=== PATIENT | male | born 1940 | race Caucasian/White ===

== ENCOUNTER 2018-05-12 15:21 | Inpatient (IN) | payer OTHER ==
[2018-05-12] MEDS ORDERED: NS 500 ML IV ONE (15:54)
[2018-05-12 16:13] LABS: PLATELET COUNT 189 10^3/uL (150-400)
[2018-05-12 16:23] LABS: INR 1.53 (0.83-1.16); PROTIME(PATIENT) 18.5 SEC (12.0-15.0)
--- NOTE | 2018-05-12 16:24 | EDPHY ---
H & P Time Seen by Provider: 05/12/18 15:24 HPI/ROS: CHIEF COMPLAINT: Shortness of breath and weakness. HISTORY OF PRESENT ILLNESS: Patient brought in by friend with multiple vague complaints. He states he has feeling weak and that his legs feel like they"way a ton". He also describes lower extremity edema. Sane he"can't do much. He describes shortness of breath as"trouble breathing all the time"symptoms have been going on for at least 1 month. Per his friend who brought him in he has had significant weight loss since [facility]. His friend last saw him at [facility] but does talked him every day. He also says he had some significant low back pain around [facility] but that has improved. Further inquiry into his shortness of breath shows no chest pain or cough but he feels short of breath with any exertion. He denies any orthopnea or nocturnal dyspnea. He denies fevers, abdominal pain, nausea, vomiting, diarrhea. He states he rarely sees a doctor and no longer has a primary care physician. REVIEW OF SYSTEMS: Constitutional: No fever, no chills. Weight loss, weakness. Eyes: No discharge. ENT: No sore throat. Cardiovascular: No chest pain, no palpitations. Respiratory: Per HPI Gastrointestinal: No abdominal pain, no vomiting. No blood in stool. Genitourinary: No dysuria. Normal urinary output. Musculoskeletal: Low back pain in March. Skin: No rashes. Neurological: No headache. No vision changes, no headache. General Appearance: Alert, no distress. Eyes: Pupils equal and round no pallor or injection. No icterus. ENT, Mouth: Dry mucous membranes. No cervical lymphadenopathy. Respiratory: There are no retractions, lungs are clear to auscultation. Cardiovascular: Regular rate, frequent ectopy. No murmurs rubs or gallops. Normal femoral pulses. Lower extremity edema present with pitting. Gastrointestinal: Abdomen is soft and nontender, no masses, bowel sounds normal. Neurological: Awake, alert, oriented. Globally weak with lower extremity strength 3 of 5 bilaterally. Skin: Warm and dry, no rashes. Musculoskeletal: Neck is supple nontender. Extremities are symmetrical. Psychiatric: Patient is oriented X 3, there is no agitation. Medical/surgical history: C diff, colectomy. Social history: Heavy alcohol and tobacco user until about 1 month ago. Smoking Status: Former smoker Constitutional: Initial Vital Signs Temperature (C) 36.5 C 05/12/18 15:24 Heart Rate 105 H 05/12/18 15:24 Respiratory Rate 16 05/12/18 15:24 Blood Pressure 111/86 H 05/12/18 15:24 O2 Sat (%) 96 05/12/18 15:24 O2 Delivery Mode Room Air Allergies/Adverse Reactions: Sulfa (Sulfonamide Antibiotics) Allergy (Verified 05/31/13 17:49) Home Medications: Medication Instructions Recorded Miscellaneous Medical Supply [NO 1 dose AD 05/31/13 HOME MEDS] Medical Decision Making - Diagnostics EKG Interpretation: EKG performed for weakness. EKG shows sinus tachycardia with frequent premature complexes. Left bundle branch block present. Some ST elevation V1 V2 and ST depression diffusely before 5 and 6. Impression abnormal, nonspecific EKG. Imaging Results: Chest x-ray shows cardiomegaly, tortuous aorta, some edema. Imaging: I viewed and interpreted images myself ED Course/Re-evaluation: Four hundred thirty, re-evaluation after 500 mils IV fluids. Patient states user to talk now. No increased shortness of breath. Denies chest pain. - Data Points Laboratory Results: Laboratory Results 05/12/18 16:01 05/12/18 16:01 05/12/18 05/12/18 05/12/18 16:01 16:01 16:01 WBC 7.33 10^3/uL 10^3/uL (3.80-9.50) RBC 4.07 10^6/uL L 10^6/uL (4.40-6.38) Hgb 13.3 g/dL L g/dL (13.7-17.5) Hct 41.5 % % (40.0-51.0) MCV 102.0 fL H fL (81.5-99.8) MCH 32.7 pg pg (27.9-34.1) MCHC 32.0 g/dL L g/dL (32.4-36.7) RDW 15.3 % H % (11.5-15.2) Plt Count 189 10^3/uL 10^3/uL (150-400) MPV 11.6 fL fL (8.7-11.7) Neut % (Auto) 69.2 % % (39.3-74.2) Lymph % (Auto) 17.9 % % (15.0-45.0) Milam % (Auto) 10.4 % % (4.5-13.0) Eos % (Auto) 1.8 % % (0.6-7.6) Baso % (Auto) 0.3 % % (0.3-1.7) Nucleat RBC Rel Count 0.0 % % (0.0-0.2) Absolute Neuts (auto) 5.08 10^3/uL 10^3/uL (1.70-6.50) Absolute Lymphs (auto) 1.31 10^3/uL 10^3/uL (1.00-3.00) Absolute Monos (auto) 0.76 10^3/uL 10^3/uL (0.30-0.80) Absolute Eos (auto) 0.13 10^3/uL 10^3/uL (0.03-0.40) Absolute Basos (auto) 0.02 10^3/uL 10^3/uL (0.02-0.10) Absolute Nucleated RBC 0.00 10^3/uL 10^3/uL (0-0.01) Immature Gran % 0.4 % % (0.0-1.1) Immature Gran # 0.03 10^3/uL 10^3/uL (0.00-0.10) PT 18.5 SEC H SEC (12.0-15.0) INR 1.53 H (0.83-1.16) Sodium 138 mEq/L mEq/L (135-145) Potassium 3.7 mEq/L mEq/L (3.5-5.2) Chloride 98 mEq/L mEq/L (97-110) Carbon Dioxide 19 mEq/l L mEq/l (22-31) Anion Gap 21 mEq/L H mEq/L (6-14) BUN 45 mg/dL H mg/dL (7-23) Creatinine 1.3 mg/dL mg/dL (0.7-1.3) Estimated GFR 54 Glucose 96 mg/dL mg/dL (70-100) Calcium 9.4 mg/dL mg/dL (8.5-10.4) Total Bilirubin 3.0 mg/dL H mg/dL (0.1-1.4) Conjugated Bilirubin Pending Unconjugated Bilirubin Pending AST 25 IU/L IU/L (17-59) ALT 25 IU/L IU/L (21-72) Alkaline Phosphatase 69 IU/L IU/L (38-126) POC Troponin I Troponin I 0.053 ng/mL H ng/mL (0.000-0.034) NT-Pro-B Natriuret Pep 62970 pg/mL H pg/mL (0-450) Total Protein 7.2 g/dL g/dL (6.3-8.2) Albumin 4.3 g/dL g/dL (3.5-5.0) TSH Pending Ethyl Alcohol < 10 mg/dL mg/dL (0-10) 05/12/18 15:51 WBC RBC Hgb Hct MCV MCH MCHC RDW Plt Count MPV Neut % (Auto) Lymph % (Auto) Milam % (Auto) Eos % (Auto) Baso % (Auto) Nucleat RBC Rel Count Absolute Neuts (auto) Absolute Lymphs (auto) Absolute Monos (auto) Absolute Eos (auto) Absolute Basos (auto) Absolute Nucleated RBC Immature Gran % Immature Gran # PT INR Sodium Potassium Chloride Carbon Dioxide Anion Gap BUN Creatinine Estimated GFR Glucose Calcium Total Bilirubin Conjugated Bilirubin Unconjugated Bilirubin AST ALT Alkaline Phosphatase POC Troponin I 0.17 ng/mL H ng/mL (0.00-0.08) Troponin I NT-Pro-B Natriuret Pep Total Protein Albumin TSH Ethyl Alcohol Medications Given: Discontinued Medications Sodium Chloride (Ns) 500 mls @ 1,000 mls/hr IV EDNOW ONE PRN Reason: Protocol Stop: 05/12/18 16:23 Last Admin: 05/12/18 15:59 Dose: 500 mls Point of Care Test Results: Chemistry 05/12/18 15:51 POC Troponin I 0.17 ng/mL H ng/mL (0.00-0.08) Departure - Departure Referrals: Patient,NotPresent [Unknown] - As per Instructions
[2018-05-12] MEDS ORDERED: ACETAMINOPHEN 325 MG TAB PO PRN (17:29)
[2018-05-12] MEDS ORDERED: FUROSEMIDE 40 MG/4 ML VIAL IVP ONE (18:03)
--- NOTE | 2018-05-12 18:57 | GHP ---
DATE OF ADMISSION: 05/12/2018 PRIMARY CARE PROVIDER: No regular outpatient followup. CHIEF COMPLAINT: Shortness of breath and abdominal pain and lower extremity weakness. HISTORY OF PRESENT ILLNESS: The patient is a 77-year-old gentleman with a past medical history of di astolic heart failure, as well as rectal cancer diagnosed in 2013, and treated with a hemicolectomy h ere at [facility] in 2013, who was brought to the [facility] by a fri end of his after he had been complaining of worsening shortness of breath. No complaints of any abdo faith pressure. There has been no productive cough. No pleuritic-type chest pains noted. Separatel y, he also has various abdominal pain complaints in different areas of his abdomen. He denies any re cent bloody stools or constipation. He was diagnosed with rectal cancer in 2013. He has not had any subsequent followup after his surgery. He did not receive any chemotherapy or radiation after his s urgery. He states that he lives alone and has been immobile due to his dyspnea and has felt weak in his lower extremities. PAST MEDICAL HISTORY: Chronic diastolic heart failure; history of atrial fibrillation, which was 1 s mayank episode in 2013, during his hospitalization, no known persistence; history of rectal carcinoma, treated with hemicolectomy. PAST SURGICAL HISTORY: Hemicolectomy. MEDICATIONS: None. ALLERGIES: Sulfa. FAMILY HISTORY: Mother lived to the age of 98 and from old age. Father is also . He h ad a history of dementia but from complications from a hip fracture. SOCIAL HISTORY: The patient is currently single and lives alone. He is and has 1 son. He states his medical power of staff attorney is his friend, whose name is Loi. CODE STATUS: Was reviewed during this admission, and he states a pb-xhk-idqleua-resuscitation code s tatus. REVIEW OF SYSTEMS: CONSTITUTIONAL: No complaints of any subjective fevers or chills. ENT: No rece nt upper respiratory illnesses. CARDIOVASCULAR: Positive for shortness of breath. No syncope or pa lpitations. RESPIRATORY: Positive for shortness of breath, particularly with exertion. GI: No lizett sea, vomiting, diarrhea, or constipation, but he does note abdominal pain in the right side of the ab domen, as well as lower middle. : No reports of any difficulty with urination. NEUROLOGIC: No c omplaints of any headaches or focal weakness. HEMATOLOGIC: No history of any deep vein thrombosis o r pulmonary embolism. PSYCHIATRIC: No history of anxiety or depression. ENDOCRINE: No history of polyuria or heat intolerance. SKIN: No new skin rashes. MUSCULOSKELETAL: No focal joint pains. PHYSICAL EXAM: VITAL SIGNS: Temperature 36.5, blood pressure 132/95, heart rate 105, respirations 1 6, satting 96% on room air. GENERAL: The patient is awake, alert, conversant, able to provide some history. HEENT: Extraocular movements appear intact. No scleral icterus is noted. NECK: Supple. No JVD noted. No thyroid enlargement appreciated. CHEST: Clear on auscultation with normal respir atory effort. No significant wheezing. HEART: Relatively soft heart sounds. No significant murmur appreciated. ABDOMEN: Tenderness with palpation around the epigastrium and right abdomen. No dist ention or ascites appreciated. : No Henry catheter in place. EXTREMITIES: Pitting edema of both lower extremities to the level of the mid albert. NEUROLOGIC: Cranial nerves 2-12 appear intact with 4/5 strength in all extremities. LABS: White blood cell count 7, hemoglobin 13, platelets 189. Sodium 138, potassium 3.7, chloride 9 8, bicarb 19, BUN 45, creatinine 1.3, glucose 96. INR is 1.5. Troponin 0.17 on the point of care an d 0.053 from blood draw. AST 25, ALT 25, alk phos 69, bilirubin is 3.0. BNP 28,400. TSH 5.5. Seru m alcohol less than 10. IMAGING: Chest x-ray showed cardiomegaly and mild pulmonary hypertension. Echocardiogram from 2013, showed an estimated ejection fraction of 50% to 55%. ASSESSMENT AND PLAN: 1. Dyspnea. Chest imaging is not showing any infiltrate or infectious process. I suspect this may be related to [id number] diastolic heart failure, which is not currently treated in any fashion . We will attempt diuresis overnight and recheck an echocardiogram in the morning. Trend troponins to monitor for any evidence of acute coronary syndrome, but these may be related to heart failure, es pecially in light of the elevated BNP. 2. Xsilt-sx-bqcyyhj diastolic heart failure, as above. 3. Abdominal pain. He was diagnosed with rectal cancer in 2013, and treated surgically. He has not had any followup since that time. We will check a CT scan of his abdomen with contrast for further evaluation. 4. Lower extremity weakness. We will have Physical Therapy consult to further evaluate, probably se condary to deconditioning. 5. Elevated TSH. Check a free T4 with morning labs. 6. Atrial fibrillation. Monitor on telemetry for any recurrence of paroxysmal atrial fibrillation. 7. Deep venous thrombosis prophylaxis. Lovenox. 8. Disposition. I will admit him under observation status for now. /[id number]/MODL
[2018-05-12] MEDS ORDERED: IOPAMIDOL (ISOVUE 370) 100 ML BTL IV ONE (19:10)
--- NOTE | 2018-05-12 21:10 | CPEKG ---
Test Reason : OPEN Blood Pressure : / mmHG Vent. Rate : 098 BPM Atrial Rate : 098 BPM P-R Int : 164 ms QRS Dur : 131 ms QT Int : 398 ms P-R-T Axes : 050 -54 123 degrees QTc Int : 509 ms Sinus tachycardia Multiple premature complexes, vent & supraven Left bundle branch block Confirmed by Lucia Nielson ([id number]) on 05/12/2018 9:09:04 PM Referred By: Confirmed By:Lucia Nielson
[2018-05-13 04:55] LABS: PLATELET COUNT 156 10^3/uL (150-400)
[2018-05-13] MEDS ORDERED: FUROSEMIDE 40 MG/4 ML VIAL IVP SCH (09:00)
[2018-05-13] MEDS ORDERED: POTASSIUM CL 20 MEQ TAB PO SCH ×2 (09:00)
[2018-05-13] MEDS: ENOXAPARIN 40 MG/0.4 ML SYR SC SCH (10:26)
--- NOTE | 2018-05-13 12:48 | SOAPPROG ---
SOAP Progress Note Assessment/Plan: Assessment: Cardiology consultation performed and dictated 77 y/o man with history of rectal cancer s/p hemicolectomy in 2013 but no reported chemo used. He had a lexiscan cardiolite at [facility] showed LVEF 62% with no ischemia. He denies previous cardiac problems. He has not seen any doctors in over two years. He has not felt well since 03/18. Last summer he could grocery shop for himself and walk 1-2 blocks with [employer]. He now is too weak to walk, is short of breath at rest and has lost weight. Denies CP, palpitations or syncope. Admitted yesterday after brought in by his neighbor who is his POA. Echo today with LVEF 13%, severe RV dysfunction, severe AI/MR and TR with no . PAS 52mmHg. Ascending thoracic aorta 4.0cm. Also found to have AAA 6.0cm. Possible etiologies of his biventricular dysfunction: valvular, CAD, post viral , ETOH use or HTN. PLAN: 1)place PICC line and start Dobutamine gtt and titrate to 5mcg/kg/min. 2)increase Lasix to 40mg IV BID 3)start Aldactone 25mg PO qam. 4)start Lisinopril 10mg PO qam. 5)No beta blockers yet. 6)L/R cardiac cath in 3-5 days once more compensated. 7)Initial thought is too much biventricular CHF to tolerate cardiac surgery with AVR/MVR/TVR. Thanks for consult. Cardiology team will follow with you. 05/13/18 12:41 Objective: Vital Signs Temp Pulse Resp BP Pulse Ox 36.3 C 87 15 127/89 H 91 L 05/13/18 11:07 05/13/18 11:07 05/13/18 11:07 05/13/18 11:07 05/13/18 11:07 Laboratory Results 05/13/18 04:40 05/13/18 04:40 05/12/18 05/13/18 05/14/18 05:59 05:59 05:59 Intake Total 850 Balance 850 PT 18.5 SEC (12.0-15.0) H 05/12/18 16:01 INR 1.53 (0.83-1.16) H 05/12/18 16:01 ICD10 Worksheet Patient Problems: Problems Problem Status Onset Atrial fibrillation Acute Clostridium difficile infection Acute Hypokalemia Acute
[2018-05-13] MEDS ORDERED: ALTEPLASE 2 MG VIAL IVP PRN (12:50)
--- NOTE | 2018-05-13 13:04 | ASMTCMCOM ---
CM Note CM Note Notes: Chart reivewed. 77 year old male admitted via ED with increasing edema of lower extremities and SOB. EF 13 percent. Has not seen MD in 2 years. Undergoing heart failure treatment with PICC. Lasix and dobutatmine. CM to follow for needs. Plan: TBD Date Signed: 05/13/2018 01:03 PM Electronically Signed By:Rosa Luis RN
[2018-05-13] MEDS: SPIRONOLACTONE 25 MG TAB PO SCH (14:09)
[2018-05-13] MEDS: LISINOPRIL 10 MG TAB PO SCH (14:09)
[2018-05-13] MEDS: FUROSEMIDE 40 MG/4 ML VIAL IVP SCH (14:11)
--- NOTE | 2018-05-13 14:40 | CPEKG ---
Test Reason : OPEN Blood Pressure : / mmHG Vent. Rate : 094 BPM Atrial Rate : 094 BPM P-R Int : 170 ms QRS Dur : 133 ms QT Int : 400 ms P-R-T Axes : -69 -50 122 degrees QTc Int : 501 ms Sinus tachycardia Bi-atrial enlargement (LAE and KEN) Multiple premature complexes, vent & supraven LVH with IVCD, LAD and secondary repol abnrm Prolonged QT interval Confirmed by Blaise Sheth ([id number]) on 05/13/2018 2:39:30 PM Referred By: Confirmed By:Blaise Sheth
[2018-05-13] MEDS: DOBUTamine/DEXTROSE 250 ML IV SCH (14:50)
--- NOTE | 2018-05-13 14:56 | ECHO ---
[email or web address] [address] [address] Main: [phone] Fax: [email or web address] Echocardiogram Name: IVÁN SORENSEN MR#: [id number] Study Date: 05/13/2018 Study Time: 09:10 AM Date of : 1940 Age: 77 year(s) Height: 170.2 cm (67 in.) Weight: 58.97 kg (130 lb.) BSA: 1.68 m2 Gender: Male Examination: Echo Indication: elevated bnp, ?CHF eval LVEF Image Quality: Adequate Contrast: Requested by: Frandy Bergman BP: 127 mmHg/91 mmHg Heart Rate: Rhythm: Indication: elevated bnp, ?CHF eval LVEF Procedure Staff Head Of Biology: Amanda Clark [facility] Reading Physician: Blaise Sheth MD Requesting Provider: Conclusions: 1)Severely reduced LV systolic function with a LVEF of 13% and global hypokinesis. 2)Mild concentric LVH with class IV, severe diastolic dysfunction noted. 3)Moderate RV enlargement with moderately reduced RVEF. 4)Severe bi-atrial enlargement noted. 5)Trileaflet aortic valve with mild sclerosis but no . Severe AI noted. 6)Moderate MR without MV prolapse. 7)Moderate to severe TR with moderate to severe pulmonary HTN (PAS = 67mmHg). 8)Moderately enlarged ascending thoracic aorta 4.0cm. note: no previous echo reports to compare to. Measurements: Chambers Valvular Assessment AV/MV Valvular Assessment TV/PV Normal Normal Normal Name Value Range Name Value Range Name Value Range Ao Jolene (MM): 3.5 cm (2.2 cm-3.7 AV Vmax: 1.24 m/s (1 m/s-1.7 TR Vmax: 3.59 mm/s ( - ) cm) m/s) TR PGmax: 52 mmHg ( - ) IVSd (2D): 1.0 cm (0.6 cm-1.1 AV maxP mmHg ( - ) syst. PAP: 67 mmHg ( - ) cm) LVOT Vmax: 0.66 m/s (0.7 m/s-1.1 PV Vmax: 0.64 m/s (0.6 m/s-0.9 LVDd (2D): 5.4 cm (4.2 cm-5.9 m/s) m/s) cm) DENISSE (Vmax): 2.0 cm2 ( - ) PV PGmax: 2 mmHg ( - ) LVDs (2D): 5.1 cm (2.1 cm-4 AR (PHT): 461 ms ( - ) cm) MV E Vmax: 0.60 m/s ( - ) LVPWd (2D): 1.0 cm (0.6 cm-1 MV A Vmax: 0.32 m/s ( - ) cm) MV E/A: 1.88 ( - ) LVOTd 2.2 cm 2.2 cm mm LVEF (BP): 13 % (>=55 %) RVDd(2D): 4.3 cm (1.9 cm-3.8 cmmm) Patient: IVÁN SORENSEN Study Date: 05/13/2018 Page 1 of 2 09:10 AM Continued Measurements: Chambers Valvular Assessment AV/MV Valvular Assessment TV/PV Name Value Name Value Name Value LADs: 3.8 cm MV DecTime: 127 m/s CVP (est.): 15 mmHg LADs Lon.8 cm MV E' Septal: 0.03 m/s LA Area: 30.3 cm2 MV E/E' Septal: 23.80 LA Volume: 108 ml MV E/E' Lateral: 6.90 LA Volume Index: 64.3 ml/m2 MR Vena Contracta: 0.5 cm TAPSE: 0.9 cm AR Vmax: 4.42 cm/s RA Area: 27.0 cm2 Additional Vessels Name Value Ao Ascendin.0 cm Findings: Left Ventricle: Dilated left ventricle. Mild concentric LV hypertrophy. Severely reduced systolic LV function. No LV thrombus noted. EF is 13 %. Grade 4 diastolic dysfunction (irreversible restricitive LV filling pattern). Right Ventricle: Moderately dilated right ventricle. Moderately reduced RV function. Left Atrium: The left atrium is severely dilated. Right Atrium: The right atrium is severely dilated. Mitral Valve: There is mild thickening of the mitral valve leaflets. Mild mitral annular calcification. No mitral stenosis is present. Moderate mitral valve regurgitation is present. Aortic Valve: The aortic valve is tri-leaflet. Mild aortic cusp calcification is noted. Severe AI noted. No aortic valve stenosis is present. Tricuspid Valve: The tricuspid valve appears normal. Moderate to severe tricuspid valve regurgitation. Right ventricular systolic pressure measures 62mmHg. The pulmonary artery pressure is severely increased. Pulmonic Valve: Pulmonary valve not well visualized. Mild pulmonic valve regurgitation is noted. Aorta: Normal size aortic root measuring 3.5 cm. Dilated ascending aorta measuring 4.0 cm. IVC: The IVC is dilated. There is greater martinez 50% respiratory excursion. Pericardium: Trivial pericardial effusion. There is a pleural effusion. (No Signature Object) Patient: IVÁN SORENSEN Study Date: 05/13/2018 Page 2 of 2 09:10 AM [id number]
--- NOTE | 2018-05-13 15:05 | HOSPPROG ---
Hospitalist Progress Note Assessment/Plan: Subjective Follow-up on shortness of breath. I reviewed patient's case today with Dr. Sheth who consulted after he read the patient's echocardiogram showing an echogenic fraction measured at 13% with significant valve disease as well. A PICC line will be placed and appropriate medical therapy for heart failure will be initiated. I reviewed all this with the patient as well. I did also discuss about the abdominal aneurysm measuring 6 cm in size and that this would require surgical consultation. The patient has medical power energy attorney was also present at the bedside today. I ensured that he was aware of the aneurysm as well as a hepatic lesion measuring 10 mm and was also seen. At this time I recommended that this be rechecked at some point in the near future to monitor for any changes. Objective Vitals as detailed below Exam General-awake alert conversant no acute distress, sitting in a chair at the bedside Heart-regular rate , very soft heart sounds Lungs-slight crackles at the bases, normal respiratory effort Abdomen-soft nontender nondistended normal bowel sounds -no Henry catheter in place Extremities-stable pitting edema both lower extremities Skin-no concerning skin rashes noted Labs as detailed below Assessment and plan Acute systolic heart failure-new diagnosis with estimated ejection fraction at 13%. Reviewed with Dr. Sheth today. Patient will have a PICC line placed and then start on medical therapy. We discussed doing a catheterization in the coming days to further workup once we have stabilized the overall situation a bit more. Abdominal aortic aneurysm-I will discuss with surgery. Liver lesion-discussed with medical power of energy attorney and stressed the importance of short-term followup for reassessment. Atrial fibrillation-history of. Patient appears to be in sinus rhythm currently. Subclinical hypothyroidism-patient's TSH is mildly elevated at 5 with a normal free T4. I do not think this needs medical therapy at the current time but rather following going forward. DVT prophylaxis-Lovenox. Disposition-patient is needing ongoing hospitalization for further workup of his new found heart failure and physical therapy. I anticipate he will need short-term placement for rehab before returning to his apartment where he was living independently prior to coming for this hospitalization. Objective: Vital Signs Temp Pulse Resp BP Pulse Ox 36.3 C 87 15 133/87 H 91 L 05/13/18 11:07 05/13/18 11:07 05/13/18 11:07 05/13/18 14:09 05/13/18 11:07 Laboratory Results 05/13/18 04:40 05/13/18 04:40 05/12/18 05/13/18 05/14/18 05:59 05:59 05:59 Intake Total 850 500 Output Total 250 Balance 850 250 PT 18.5 SEC (12.0-15.0) H 05/12/18 16:01 INR 1.53 (0.83-1.16) H 05/12/18 16:01 ICD10 Worksheet Patient Problems: Problems Problem Status Onset Atrial fibrillation Acute Clostridium difficile infection Acute Hypokalemia Acute
--- NOTE | 2018-05-13 15:18 | PDMN ---
Medical Necessity Medical necessity: Pt meets INPT criteria per MD as of 05/13/18 and MCG M-190 Heart Failure (est. LOS >2 MN for ongoing eval/mgmt of acute systolic heart failure - new dx with EF 13%, req dobutamine; comorbid AAA, liver lesion).
--- NOTE | 2018-05-13 19:05 | GCON ---
CARDIOLOGY CONSULT DATE OF CONSULTATION: 05/13/2018 CHIEF COMPLAINT: Too weak to stand up at rest, shortness of breath, and weight loss x6 weeks. HISTORY OF PRESENT ILLNESS: The patient is a 77-year-old gentleman with a history of rectal cancer in 2013, treated with a surgical hemicolectomy but no reported radiation or chemotherapy. He reportedly had some paroxysmal atrial fibrillation in the past. He had a Cardiolite stress test at [facility] in 2013, which demonstrated an LVEF of 62% with no ischemia. He has not seen any doctors in about 2-1/2 years. He was brought in by his neighbor, who is his power of environmental attorney. For the last 6 weeks, he has been having worsening shortness of breath and fatigue, now unable to stand up. He has also been losing weight. Approximately 8 months ago, he could go grocery shopping for himself and walk 2 blocks with moderate dyspnea on exertion. He reports no chest pain, palpitations, or syncope. An echo today demonstrates an LVEF of 13 % with concurrent severe RV dysfunction and a trileaflet aortic valve with severe aortic insufficiency and no aortic stenosis. He has severe mitral and tricuspid insufficiency with an estimated PA systolic pressure of 62 mmHg and an enlarged ascending thoracic aorta of 4.0 cm. Other testing also shows a 6.0 cm abdominal aortic aneurysm. Today, he is tired and weak and short of breath at rest. He is in no pain. Of note, he drank 3-4 alcoholic drinks per day until 3 months ago. PAST MEDICAL HISTORY: 1. Acute systolic heart failure with an LVEF of 13% and concurrent biventricular dysfunction. 2. Severe aortic, mitral, and tricuspid insufficiency. 3. Rectal cancer in 2013. 4. Nonspecific history of paroxysmal atrial fibrillation and abdominal aortic aneurysm of 6.0 cm. PAST SURGICAL HISTORY: Hemicolectomy in 2013. CURRENT MEDICATIONS: Lasix 40 mg IV daily, KCl 40 mEq b.i.d., Lovenox 40 mg subcu daily. ALLERGIES: Sulfa. SOCIAL HISTORY: The patient is single. He quit tobacco 3 months ago and quit alcohol 3 months ago and reports he had 3-4 cocktails per day. FAMILY HISTORY: Unremarkable for premature heart failure or coronary artery disease. REVIEW OF SYSTEMS: The patient reports he has lost an unspecific amount of weight. He reports no fevers or chills. He reports no GI bleed symptoms such as hematemesis, melena, or bright red blood per rectum. Rest of 10-point review of systems is negative. PHYSICAL EXAM: GENERAL: An older, thin-appearing gentleman in no acute distress without chest pain or using accessory respiratory muscles. VITAL SIGNS : Afebrile. Pulse 87 and regular, blood pressure 127/89, respirations 20, 91% on room air. Weight 59 kg. HEENT: Eyes pupils equal, reactive to light. ENT : Oral mucosa with no cyanosis. NECK: Jugular venous pressure to 8 cm. Carotid pulses 2+ bilaterally with no obvious bruits. LUNGS: Clear to auscultation bilaterally without rales, rhonchi, or wheezing. HEART: Enlarged PMI. Regular rate and rhythm with 2/6 holosystolic murmur and positive S3 gallop. ABDOMEN: Soft, nontender. No guarding or rebound. EXTREMITIES: 2+ peripheral pulses including femoral and pedal pulses. 1+ edema bilaterally. MUSCULOSKELETAL: No scoliosis. NECK: No nuchal rigidity. SKIN: No bleeding or cyanosis. NEURO: Normal affect and mood. LABS: White count 6.0, hematocrit 37, platelets 156,000. MCV 98. INR 1.56. Sodium 137, potassium 3.3, chloride 102, bicarb 20, BUN 40, creatinine 1.2, glucose 87. NT proBNP level 28,400. Troponin 0.06. TSH 5.6. IMPRESSION: A 77-year-old gentleman with acute systolic biventricular heart failure with a left ventricular ejection fraction of 13% and Class IV [place] [employer] symptoms. Possible etiologies for his biventricular dysfunction are valvular disease versus new obstructive coronary artery disease versus longstanding hypertension versus post viral exposure versus alcohol toxins versus tachy-induced cardiomyopathy from atrial fibrillation, though his rate is controlled today. Overall, I think he is moderately hypervolemic. RECOMMENDATIONS: 1. Would place a PICC line and start on dobutamine drip at 3 mcg/kg per minute and titrate up to a goal drip of 5 mcg/kg per minute, watching for angina and nonsustained VT. 2. Would start on lisinopril 10 mg per day. 3. Would increase his Lasix to 40 mg IV b.i.d. 4. Would start on Aldactone 25 mg per day. 5. Would not start on a beta rafael until he is compensated. 6. Probably needs a left and right heart catheterization in 4-5 days once he is more compensated. 7. My initial thought is if this is related to his valvular processes; unfortunately, his heart right now is too weak to tolerate a triple valve surgery. Hopefully with CHF medicines over the next several months, his EF would improve. Thank you for allowing me to participate in the care of the patient. Cardiology service will continue to follow closely with you. /[id number]/MODL MTDD
[2018-05-13] MEDS: POTASSIUM CL 20 MEQ PKT PO SCH (22:16)
[2018-05-14 06:31] LABS: PLATELET COUNT 149 10^3/uL (150-400)
[2018-05-14] MEDS ORDERED: MAGNESIUM SULF 2 GM/WATER 50 ML IV ONE ×2 (08:35→08:53)
--- NOTE | 2018-05-14 08:51 | SOAPPROG ---
SOAP Progress Note Assessment/Plan: Assessment: 77 y/o man with history of rectal cancer s/p hemicolectomy in 2013 but no reported chemo used. He had a lexiscan cardiolite at [facility] showed LVEF 62% with no ischemia. He denies previous cardiac problems. He has not seen any doctors in over two years. He has not felt well since 03/18. Last summer he could grocery shop for himself and walk 1-2 blocks with [employer]. He now is too weak to walk, is short of breath at rest and has lost weight. Denies CP, palpitations or syncope. Admitted yesterday after brought in by his neighbor who is his POA. Echo yesterday with LVEF 13%, severe RV dysfunction, severe AI/MR and TR with no . PAS 52mmHg. Ascending thoracic aorta 4.0cm. Also found to have AAA 6.0cm. Possible etiologies of his biventricular dysfunction: valvular, CAD, post viral , ETOH use or HTN. He is a little less weak on IV inotrope. He is a little of recluse not seeing MDs or taking meds. I had an honest conversation with him that he has serious heart and AAA issues and will have to work closely with medical field and take meds and have procedures. He says he will do that and wants to fight on. PLAN: 1) MG sulfate 2gm IV and then start Mg oxide 500mg PO qam. 2)no change in rest of meds. 3)IV dobutamine probably for 2-3 more days then stop and do L/R cardiac cath . 4)Vascular Surgery consult Dr. Parminder Eller for AAA managment. 05/14/18 08:48 Subjective: not much different than yesterday except maybe a little less weak. One episode of severe lightheadedness and near syncope walking to bathroom. Denies CP, palpitations, PND or abdominal pain. Objective: Vital Signs Temp Pulse Resp BP Pulse Ox 36.3 C 86 12 106/67 86 L 05/14/18 07:23 05/14/18 07:23 05/14/18 07:23 05/14/18 07:23 05/14/18 08:25 Laboratory Results 05/14/18 05:55 05/14/18 05:55 0105/14/18 05/15/18 05:59 05:59 05:59 Intake Total 1357 Output Total 1100 Balance 257 PT 18.5 SEC (12.0-15.0) H 05/12/18 16:01 INR 1.53 (0.83-1.16) H 05/12/18 16:01 Physical Exam - Physical Exam General Appearance: alert EENT: PERRL/EOMI Neck: non-tender Respiratory: lungs clear Cardiac/Chest: regular rate, rhythm, gallop, JVD, systolic murmur Peripheral Pulses: 2+: carotid (R), carotid (L), femoral (R), femoral (L), dorsalis-pedis (R), dorsalis-pedis (L) Abdomen: non-tender, No guarding, No ascites Skin: warm/dry Extremities: No pedal edema Neuro/Psych: alert ICD10 Worksheet Patient Problems: Problems Problem Status Onset Atrial fibrillation Acute Clostridium difficile infection Acute Hypokalemia Acute
--- NOTE | 2018-05-14 09:17 | WOCRNPDOC ---
WOCRN Advanced Assessment Note - Skin Integrity Problem, Advanced Assess Lower Back Dressing Type: Open to Air Site Measurement - Head-to-Toe Length X Width X Depth (cm): 3.5x2x0 Skin Integrity Problem Comment: No pressure injury noted as the area is blanching. Advise covering the area with a medium or large allevyn life to keep area padded. Please reconsult prn.
[2018-05-14] MEDS: FUROSEMIDE 40 MG/4 ML VIAL IVP SCH ×2 (10:15→16:39)
[2018-05-14] MEDS: POTASSIUM CL 20 MEQ PKT PO SCH ×2 (10:16→21:55)
[2018-05-14] MEDS: ENOXAPARIN 40 MG/0.4 ML SYR SC SCH (10:20)
[2018-05-14] MEDS: SPIRONOLACTONE 25 MG TAB PO SCH (10:22)
--- NOTE | 2018-05-14 13:14 | ASMTCMCOM ---
CM Note CM Note Notes: 05/14/2018 Case Management Note Met w/pt to discuss d/c needs. PT recommending SNF. Pt agreeable. Faxed referral to [facility] Case Management d/c poc: [facility] pending acceptance Case Management to follow. Date Signed: 05/14/2018 01:00 PM Electronically Signed By:Alessandra Day RN
[2018-05-14] MEDS ORDERED: MAGNESIUM OXIDE 400 MG TAB PO SCH (14:00)
--- NOTE | 2018-05-14 15:24 | HOSPPROG ---
Hospitalist Progress Note Assessment/Plan: Subjective Follow-up on shortness of breath. I reviewed patient's case yesterday with Dr. Sheth who consulted after he read the patient's echocardiogram showing an echogenic fraction measured at 13% with significant valve disease as well. A PICC line will be placed and appropriate medical therapy for heart failure was initiated. I reviewed all this with the patient as well. Overnight no acute events. Patient states his edema in his legs is better than the day before. He still notes significant fatigue though in did not feel like working with occupational therapy or physical therapy today. Objective Vitals as detailed below Exam General-awake alert conversant no acute distress, sitting in a chair at the bedside Heart-regular rate , very soft heart sounds Lungs-clear on auscultation today. normal respiratory effort Abdomen-soft nontender nondistended normal bowel sounds -no Henry catheter in place Extremities-improved bilateral lower extremity pitting edema Skin-no concerning skin rashes noted Labs as detailed below Assessment and plan Acute systolic heart failure-new diagnosis with estimated ejection fraction at 13%. I appreciate Dr. Sheth consulting. The plan is to continue current medical therapy including dobutamine and plan for cardiac catheterization later this week. Abdominal aortic aneurysm-I discussed his case with Dr. Eller today and he will consult for further recommendations. Hypokalemia-replace and recheck tomorrow. Hypomagnesemia-replaced and recheck tomorrow. Liver lesion-discussed with medical power of estate planning attorney and stressed the importance of short-term followup for reassessment. Atrial fibrillation-history of. Patient appears to be in sinus rhythm currently. Subclinical hypothyroidism-patient's TSH is mildly elevated at 5 with a normal free T4. I do not think this needs medical therapy at the current time but rather following going forward. DVT prophylaxis-Lovenox. Disposition-patient is needing ongoing hospitalization for further workup of his new found heart failure and physical therapy. I anticipate he will need short-term placement for rehab before returning to his apartment where he was living independently prior to coming for this hospitalization. He is a do not attempt resuscitation code status. Objective: Vital Signs Temp Pulse Resp BP Pulse Ox 36.9 C 75 18 106/64 90 L 05/14/18 11:06 05/14/18 11:06 05/14/18 11:06 05/14/18 13:02 05/14/18 11:06 Laboratory Results 05/14/18 05:55 05/14/18 05:55 05/13/18 05/14/18 05/15/18 05:59 05:59 05:59 Intake Total 1357 Output Total 1100 400 Balance 257 -400 PT 18.5 SEC (12.0-15.0) H 05/12/18 16:01 INR 1.53 (0.83-1.16) H 05/12/18 16:01 ICD10 Worksheet Patient Problems: Problems Problem Status Onset Chronic Disease Mgmt/Transitional Care Acute Atrial fibrillation Acute Clostridium difficile infection Acute Hypokalemia Acute
[2018-05-14] MEDS: DOBUTamine/DEXTROSE 250 ML IV SCH (16:00)
[2018-05-14] MEDS: LISINOPRIL 10 MG TAB PO SCH (16:00)
--- NOTE | 2018-05-14 18:45 | GCON ---
CHIEF COMPLAINT: Abdominal aortic aneurysm. HISTORY OF PRESENT ILLNESS: This is a 77-year-old male with a history of rectal cancer in 2013 and diastolic heart failure, who presented to the emergency department on Monday complaining of increased shortness of breath. An echocardiogram revealed a left ventricular ejection fraction of 13% with concurrent severe right ventricular dysfunction and a trileaflet aortic valve with severe aortic insufficiency and no aortic stenosis. Abdominal CT scan performed at the time of admission revealed an infrarenal abdominal aortic aneurysm that has increased in size since 2013, currently measuring 6.[address] Eller was asked to see this patient with regard to surgical evaluation of an enlarging AAA. PAST MEDICAL HISTORY: Chronic diastolic heart failure, history of atrial fibrillation, history of rectal cancer. PAST SURGICAL HISTORY: Hemicolectomy. MEDICATIONS: None. ALLERGIES: Sulfa. FAMILY HISTORY: Mother lived to the age of 98 and just recently of old age. Father is also . SOCIAL HISTORY: The patient smoked 1 pack a day for several decades and just recently quit about 3 weeks ago. He also used to drink approximately 3-4 alcoholic beverages per day and quit at the same time. REVIEW OF SYSTEMS: Ten-point review of systems was performed and is negative, aside from what is in the HPI. PHYSICAL EXAMINATION: GENERAL: This is a chronically ill-appearing male, resting comfortably in a hospital chair. HEENT: Normocephalic, atraumatic. No gross hearing deficits. Mucous membranes are moist. Pupils are equal and round. NECK: Supple. No JVD noted. Thyroid normal. CARDIAC: Regular rate and rhythm. CHEST: Clear to auscultation bilaterally, no wheezing. ABDOMEN: Soft, nontender, nondistended. No pulsatile mass appreciated. EXTREMITIES: Pitting edema of both lower extremities. NEUROLOGIC: Alert and oriented x3. PSYCHIATRIC: Appropriate mood and affect. IMPRESSION AND PLAN: This is a patient with a significant cardiac history, who was incidentally found to have an enlarging abdominal aortic aneurysm measuring 6.5 x 4.6 cm. The patient was seen by Dr. Eller and myself. Dr. Eller has recommended that the patient undergo repair of his abdominal aortic aneurysm. Risks and options have been fully discussed. Risks of surgery include, but are not limited to infection, bleeding, need for further surgery, need for open surgery, heart attack, and . We will plan for endovascular repair of his abdominal aortic aneurysm once he is cleared by Cardiology. The patient understands and wishes to proceed with plan. /[id number]/MODL MTDD
[2018-05-15 06:14] LABS: PLATELET COUNT 156 10^3/uL (150-400)
[2018-05-15] MEDS: LISINOPRIL 10 MG TAB PO SCH (08:30)
[2018-05-15] MEDS: SPIRONOLACTONE 25 MG TAB PO SCH (08:31)
[2018-05-15] MEDS: ENOXAPARIN 40 MG/0.4 ML SYR SC SCH (08:31)
[2018-05-15] MEDS: MAGNESIUM OXIDE 400 MG TAB PO SCH (08:31)
[2018-05-15] MEDS: FUROSEMIDE 40 MG/4 ML VIAL IVP SCH ×2 (08:31→14:32)
[2018-05-15] MEDS: POTASSIUM CL 20 MEQ PKT PO SCH ×2 (10:39→21:49)
--- NOTE | 2018-05-15 13:29 | HOSPPROG ---
Hospitalist Progress Note Assessment/Plan: Acute systolic heart failure-No history of CHF, LVEF of 13% on review of echo. Dr. Sheth has seen patient and currently plan is to provide medical therapy with plan for cath later in the week. -cont dopamine -cardiology consulted -await definite plans for cath -medical optimization Abdominal aortic aneurysm-Awaiting Surgery consultation for possible operative repair. Hypokalemia-currently K is WNL. monitor. Liver lesion-discussed with medical power of attorney lawyer and stressed the importance of short-term followup for reassessment. Atrial fibrillation-history of. Patient appears to be in sinus rhythm currently. Subclinical hypothyroidism-patient's TSH is mildly elevated at 5 with a normal free T4. I do not think this needs medical therapy at the current time but rather following going forward. Prophylaxis- lovenox Fluids-None Lytes- WNL Nutrition- cardiac Cor-DNR Dispo- inpatient for CHF, Subjective: no complaints. no chest pain. no fevers, chills, or cohgh Objective: Vital Signs Temp Pulse Resp BP Pulse Ox 36.7 C 89 18 93/62 L 95 05/15/18 11:42 05/15/18 11:42 05/15/18 11:42 05/15/18 11:42 05/15/18 11:42 Laboratory Results 05/15/18 06:00 05/15/18 06:00 05/14/18 05/15/18 05/16/18 05:59 05:59 05:59 Intake Total 1357 592.8 Output Total 1100 1000 Balance 257 -407.2 PT 18.5 SEC (12.0-15.0) H 05/12/18 16:01 INR 1.53 (0.83-1.16) H 05/12/18 16:01 - Physical Exam Constitutional: no apparent distress, appears nourished, not in pain Eyes: PERRL, anicteric sclera, EOMI Ears, Nose, Mouth, Throat: moist mucous membranes, hearing normal, ears appear normal, no oral mucosal ulcers Cardiovascular: regular rate and rhythym, no murmur, rub, or gallop, edema Respiratory: no respiratory distress, reduced air movement Gastrointestinal: normoactive bowel sounds, soft, non-tender abdomen, no palpable masses Genitourinary: no bladder fullness, no bladder tenderness, no renal bruits Skin: no rashes or abrasions, no fluctuance, no induration Musculoskeletal: full muscle strength, no muscle tenderness, normal joint ROM Neurologic: AAOx3, sensation intact bilaterally Psychiatric: interacting appropriately, not anxious, not encephalopathic, thought process linear Lymph, Heme, Immunologic: no cervical LAD, no supraclavicular LAD ICD10 Worksheet Patient Problems: Problems Problem Status Onset Chronic Disease Mgmt/Transitional Care Acute Atrial fibrillation Acute Clostridium difficile infection Acute Hypokalemia Acute
[2018-05-15] MEDS: DOBUTamine/DEXTROSE 250 ML IV SCH (16:57)
--- NOTE | 2018-05-15 19:26 | PDCARPN ---
Cardiology Progress Note Chief Complaint: CHF Assessment/Plan: Assessment: 77 y/o man with history of rectal cancer s/p hemicolectomy in 2013 but no reported chemo used. He had a lexiscan cardiolite at [facility] showed LVEF 62% with no ischemia. He denies previous cardiac problems. He has not seen any doctors in over two years. He has not felt well since 03/18. Last summer he could grocery shop for himself and walk 1-2 blocks with [employer]. He now is too weak to walk, is short of breath at rest and has lost weight. Denies CP, palpitations or syncope. Admitted yesterday after brought in by his neighbor who is his POA. Echo yesterday with LVEF 13%, severe RV dysfunction, severe AI/MR and TR with no . PAS 52mmHg. Ascending thoracic aorta 4.0cm. Also found to have AAA 6.0cm. PLAN per Blaise Sheth MD 1) MG sulfate 2gm IV and then start Mg oxide 500mg PO qam. 2)no change in rest of meds. 3)IV dobutamine probably for 2-3 more days then stop and do L/R cardiac cath . 4)Vascular Surgery consult Dr. Parminder Eller for AAA management. Plan:Continue with Dr Sheth POC. He is feeling much better, with little SOB, or edema. 05/15/18 19:22 Subjective: feeling much better Reviewed/Discussed With: multidisciplinary team Time Spent with Patient: greater than 25 minutes Time Spent with Patient: Greater than 25 minutes spent on this patients care, greater than 50% of time spent counseling, educating, and coordinating care regarding the above mentioned plan. Objective: Vital Signs (8 Hrs) Temp Pulse Resp BP Pulse Ox 05/15/18 16:00 36.8 C 92 18 109/63 96 05/15/18 11:42 36.7 C 89 18 93/62 L 95 Intake/Output (24 Hrs) 05/14/18 05/15/18 05/16/18 05:59 05:59 05:59 Intake Total 1357 592.8 250 Output Total 1100 1000 500 Balance 257 -407.2 -250 Intake: Oral (ml) 1200 350 IV Intake (ml) 124.8 IV Infused (ml) 157 118 250 DOBUTamine/DEXTROSE 250 157 118 250 ml @ Titrate IV CONT ANGEL Rx#:[id number] Output: Urine (ml) 1100 1000 500 Toilet 650 400 Urinal 450 600 500 Other: Weight 68.402 kg 67.7 kg 68.1 kg Intake Quantity Yes Sufficient Number of Voids Toilet 2 1 Urinal 1 1 Number of Stools Toilet 1 Urinal 1 1 Result Diagrams: 05/15/18 06:00 05/15/18 06:00 - Physical Exam Constitutional: no apparent distress Cardiovascular: regular rate and rhythm, no rubs, no gallops Respiratory: no crackles, no wheezes, reduced air movement Skin: warm Neurologic: AAOx3 Psychiatric: cooperative, interactive ICD10 Worksheet Patient Problems: Problems Problem Status Onset Chronic Disease Mgmt/Transitional Care Acute Hypokalemia Acute Atrial fibrillation Acute Clostridium difficile infection Acute
[2018-05-16] MEDS: FUROSEMIDE 40 MG/4 ML VIAL IVP SCH (09:28)
[2018-05-16] MEDS: ENOXAPARIN 40 MG/0.4 ML SYR SC SCH (09:29)
[2018-05-16] MEDS: SPIRONOLACTONE 25 MG TAB PO SCH (09:29)
[2018-05-16] MEDS: POTASSIUM CL 20 MEQ PKT PO SCH (09:29)
[2018-05-16] MEDS: LISINOPRIL 10 MG TAB PO SCH (09:29)
[2018-05-16] MEDS: MAGNESIUM OXIDE 400 MG TAB PO SCH (09:29)
--- NOTE | 2018-05-16 11:25 | SOAPPROG ---
[place] Progress Note Assessment/Plan: Assessment: 77 y/o man with history of rectal cancer s/p hemicolectomy in 2013 but no reported chemo used. He had a lexiscan cardiolite at [facility] showed LVEF 62% with no ischemia. He denies previous cardiac problems. He has not seen any doctors in over two years. He has not felt well since 03/18. Last summer he could grocery shop for himself and walk 1-2 blocks with [employer]. He now is too weak to walk, is short of breath at rest and has lost weight. Denies CP, palpitations or syncope. Admitted yesterday after brought in by his neighbor who is his POA. Echo this hospitalization with LVEF 13%, severe RV dysfunction, severe AI/MR and TR with no . PAS 52mmHg. Ascending thoracic aorta 4.0cm. Also found to have AAA 6.0cm. Possible etiologies of his biventricular dysfunction: valvular, CAD, post viral , ETOH use or HTN. He is a little less weak on IV inotrope. He is a little of recluse not seeing MDs or taking meds. I had an honest conversation with him that he has serious heart and AAA issues and will have to work closely with medical field and take meds and have procedures. He says he will do that and wants to fight on. REC: 1)stop IV dobutamine tonight 2)L/R/possible PCI tomorrow AM with Dr. Garcia. R/B/A discussed with patient and he wishes to proceed. I suspect will not have obstructive CAD. 3)would then give thru weekend on new CHF meds and do ELG of AAA monday with plan then to SNF middle of next week and close follow up in [facility]. 4)decrease Lasix to 40mg IV qam. 05/16/18 11:21 Subjective: overall feels a little stronger. Ambulated hallway with assistance for 100ft. Denies CP, abdominal pain, palpitations or syncope. Objective: Vital Signs Temp Pulse Resp BP Pulse Ox 36.2 C 91 20 116/68 90 L 05/16/18 07:15 05/16/18 07:15 05/16/18 07:15 05/16/18 09:29 05/16/18 07:15 Laboratory Results 05/15/18 06:00 05/15/18 06:00 05/15/18 05/16/18 05/17/18 05:59 05:59 05:59 Intake Total 592.8 674.8 250 Output Total 1000 1100 200 Balance -407.2 -425.2 50 PT 18.5 SEC (12.0-15.0) H 05/12/18 16:01 INR 1.53 (0.83-1.16) H 05/12/18 16:01 Physical Exam - Physical Exam General Appearance: alert, thin EENT: PERRL/EOMI Neck: non-tender Respiratory: lungs clear Cardiac/Chest: regular rate, rhythm, gallop, systolic murmur, No JVD Peripheral Pulses: 2+: carotid (R), carotid (L), femoral (R), femoral (L), dorsalis-pedis (R), dorsalis-pedis (L) Abdomen: non-tender, No guarding Skin: warm/dry Extremities: No pedal edema Neuro/Psych: oriented x 3 ICD10 Worksheet Patient Problems: Problems Problem Status Onset Chronic Disease Mgmt/Transitional Care Acute Atrial fibrillation Acute Clostridium difficile infection Acute Hypokalemia Acute
[2018-05-16] MEDS ORDERED: ACETAMINOPHEN 325 MG TAB PO PRN (11:27)
[2018-05-16] MEDS ORDERED: TEMAZEPAM 15 MG CAP PO PRN (11:27)
[2018-05-16] MEDS ORDERED: NITROGLYCERIN 0.4 MG BTL SL PRN (11:27)
--- NOTE | 2018-05-16 13:49 | HOSPPROG ---
Hospitalist Progress Note Assessment/Plan: Acute systolic heart failure-No history of CHF, LVEF of 13% on review of echo. Dr. Sheth has seen patient and currently plan is to provide medical therapy with plan for cath later in the week. -stop Dopamine this afternoon -cardiology consulted -plans for cath tomorrow -Lasix -Lisinopril -Spironolactone -TTE c/w LVEF 13%, Severe RV Dysfunction Valvular Disease -Severe AI/MR/TR Abdominal aortic aneurysm, 6cm x 4.6 cm -Vascular surgery once stable from cardiac standpoint Hypokalemia-currently K is WNL. monitor. Liver lesion-discussed with medical power of document review attorney and stressed the importance of short-term followup for reassessment. Atrial fibrillation-history of. Patient appears to be in sinus rhythm currently. Subclinical hypothyroidism-patient's TSH is mildly elevated at 5 with a normal free T4. I do not think this needs medical therapy at the current time but rather following going forward. Prophylaxis- lovenox Cor-DNR Dispo- inpatient for CHF Subjective: no cp. intermittent SOB. No N/V. Objective: Vital Signs Temp Pulse Resp BP Pulse Ox 36.6 C 83 12 94/58 L 93 05/16/18 11:43 05/16/18 11:43 05/16/18 11:43 05/16/18 11:43 05/16/18 11:43 Laboratory Results 05/15/18 06:00 05/15/18 06:00 05/15/18 05/16/18 05/17/18 05:59 05:59 05:59 Intake Total 592.8 674.8 250 Output Total 1000 1100 200 Balance -407.2 -425.2 50 PT 18.5 SEC (12.0-15.0) H 05/12/18 16:01 INR 1.53 (0.83-1.16) H 05/12/18 16:01 - Physical Exam Constitutional: chronically ill appearing Eyes: PERRL, EOMI Ears, Nose, Mouth, Throat: moist mucous membranes, hearing normal Cardiovascular: regular rate and rhythym, No edema Respiratory: no respiratory distress Gastrointestinal: normoactive bowel sounds, soft, non-tender abdomen Skin: warm Neurologic: AAOx3 Psychiatric: interacting appropriately, not anxious, not encephalopathic Lymph, Heme, Immunologic: No petechiae ICD10 Worksheet Patient Problems: Problems Problem Status Onset Chronic Disease Mgmt/Transitional Care Acute Atrial fibrillation Acute Clostridium difficile infection Acute Hypokalemia Acute
[2018-05-17 05:11] LABS: PLATELET COUNT 199 10^3/uL (150-400)
[2018-05-17 05:20] LABS: INR 1.21 (0.83-1.16); PROTIME(PATIENT) 15.5 SEC (12.0-15.0)
[2018-05-17] MEDS ORDERED: NS 1,000 ML IV ONE (06:00)
[2018-05-17] MEDS ORDERED: DIAZEPAM 5 MG TAB PO ONE (06:00)
[2018-05-17] MEDS ORDERED: diphenhydrAMINE 25 MG CAP PO ONE ×2 (06:00→10:21)
[2018-05-17] MEDS ORDERED: FAMOTIDINE 20 MG TAB PO ONE (06:00)
[2018-05-17] MEDS: MAGNESIUM OXIDE 400 MG TAB PO SCH (08:26)
[2018-05-17] MEDS: LISINOPRIL 10 MG TAB PO SCH (08:26)
[2018-05-17] MEDS: SPIRONOLACTONE 25 MG TAB PO SCH (08:26)
[2018-05-17] MEDS: ENOXAPARIN 40 MG/0.4 ML SYR SC SCH (08:30)
[2018-05-17] MEDS ORDERED: POTASSIUM CL 20 MEQ TAB PO SCH (09:00)
[2018-05-17] MEDS ORDERED: FAMOTIDINE 20 MG TAB ONE (10:21)
[2018-05-17] MEDS ORDERED: DIAZEPAM 5 MG TAB ONE (10:21)
[2018-05-17] MEDS ORDERED: ASPIRIN EC 325 MG TAB PO ONE (10:21)
--- NOTE | 2018-05-17 11:51 | HOSPPROG ---
Hospitalist Progress Note Assessment/Plan: Acute systolic heart failure-No history of CHF, LVEF of 13% on review of echo. -Cath today -Lasix held -TTE c/w LVEF 13%, Severe RV Dysfunction Valvular Disease -Severe AI/MR/TR Abdominal aortic aneurysm, 6cm x 4.6 cm -Vascular surgery once stable from cardiac standpoint, likely on Monday Acute Kidney Injury Hyperkalemia Liver lesion-discussed with medical power of traffic law attorney and stressed the importance of short-term followup for reassessment. Atrial fibrillation-history of. Patient appears to be in sinus rhythm currently. Subclinical hypothyroidism-patient's TSH is mildly elevated at 5 with a normal free T4. I do not think this needs medical therapy at the current time but rather following going forward. Prophylaxis- lovenox Cor-DNR Dispo- inpatient for CHF Plan: Cath today repeat BMP Lasix held this morning. May need to hold Spironolactone as well. further reccs including mgmt of Hyperkalemia/TEA pending results of repeat BMP which will be done after cardiac cath Subjective: awaiting cardiac cath. no cp or sob. no n/v Objective: Vital Signs Temp Pulse Resp BP Pulse Ox 36.6 C 76 20 111/71 90 L 05/17/18 07:56 05/17/18 07:56 05/17/18 07:56 05/17/18 08:26 05/17/18 07:56 Laboratory Results 05/17/18 04:45 05/17/18 04:45 05/16/18 05/17/18 05/18/18 05:59 05:59 05:59 Intake Total 674.8 1650 Output Total 1100 850 Balance -425.2 800 PT 15.5 SEC (12.0-15.0) H 05/17/18 04:45 INR 1.21 (0.83-1.16) H 05/17/18 04:45 - Physical Exam Constitutional: no apparent distress Eyes: PERRL, EOMI Ears, Nose, Mouth, Throat: moist mucous membranes, hearing normal Cardiovascular: regular rate and rhythym Respiratory: no respiratory distress, no rales or rhonchi, clear to auscultation Gastrointestinal: normoactive bowel sounds, soft, non-tender abdomen Skin: warm Neurologic: AAOx3 Psychiatric: interacting appropriately, not anxious, not encephalopathic Lymph, Heme, Immunologic: No petechiae ICD10 Worksheet Patient Problems: Problems Problem Status Onset Chronic Disease Mgmt/Transitional Care Acute Atrial fibrillation Acute Clostridium difficile infection Acute Hypokalemia Acute
--- NOTE | 2018-05-17 11:58 | ASMTCMCOM ---
CM Note CM Note Notes: Pts case discussed in tx rounds. Pt is getting a cath today. Updates sent to [facility]. Anticipate d/c for Monday or of next week. CM to follow. Plan: [facility] Date Signed: 05/17/2018 11:57 AM Electronically Signed By:TAMMY Arriaza
--- NOTE | 2018-05-17 12:00 | PDPROPOC ---
Sedation Plan of Care Sedation Plan of Care: vital signs stable, mental status noted, patient educated of risks, benefits, alternatives, patient can tolerate sedation ASA Classification: ASA 4 Planned drugs: fentanyl, midazolam Mallampati Score: Class 2 Mallampati Reference Image: Patient passed 3-3-2 rule?: Yes
--- NOTE | 2018-05-17 12:02 | PDHPUP ---
History & Physical Update H&P update statement: This history and physical update is based on an assessment of the patient which was completed after admission or registration (within 24 hours), but prior to the surgery/procedure. H&P update: H&P reviewed & patient examined, changes noted (Dr. Sheth wants left and right heart cath to evaluate cardiac function in patient with heart failure and reduced ejection fraction)
[2018-05-17] MEDS ORDERED: LIDOCAINE 1% 300 MG/30 ML SDV ONE (12:04)
[2018-05-17] MEDS ORDERED: IOPAMIDOL (ISOVUE-370) 150 ML BTL IV ONE (12:05)
[2018-05-17] MEDS ORDERED: fentaNYL 100 MCG/2 ML INJ ONE (12:05)
[2018-05-17] MEDS ORDERED: MIDAZOLAM 2 MG/2 ML VIAL ONE (12:05)
--- NOTE | 2018-05-17 12:46 | PDDXCAT ---
Diagnostic Cath Note - . Date: 05/17/18 Dry Wall Applicator: Radha Indication: other (Heart failure and decreased ejection fraction) - Procedure Access: right groin Procedure: left heart catheterization, coronary angiography, left ventriculogram , right heart catheterization - Materials Left Heart Cath materials: JL4.0, JR4.0 Right Heart Cath size: 7F Right Heart Cath materials: PWP catheter - Findings-Left Heart Catheterization LM: The left main is 9mm in size. The vessel is heavily calcified and there is a 95% occlusion in the vessel. There is LONA III flow. LAD: The proximal left anterior descending is 2.75mm in size. There are luminal irregularities consistent with atherosclerosis. Maximal luminal stenosis is 40% . The distal segment of the LAD is totally occluded. The first diagonal has a 50 % obstruction, the second diagonal has a 70% obstruction, and an 80% occlusion in the third diagonal. There are left to right collaterals to the distal PDA. LCX: The left circumflex is 4mm in size with a ostial marginal branch. There is a 50% obstruction in the vessel. RCA: The right coronary is 3mm in size dominant. There is an 80% obstruction in the proximal segment and 100% occlusion in the distal segment of the RCA prior to the PDA. EDP: 25mmHg LVEF: 10% Wall motion: On the LV gram there is significantly decreased LV systolic function. The EF is 10%. There is severe global hypokinesis. The visualized portion of the thoracic aortic valve reveals three sinuses of valsalva most consistent with a trileaflet valve. There is 3+ mitral regurgitation. There is no gradient on pullback across the aortic valve. There is a dilated ascending thoracic aorta. - Findings-Right Heart Catheterization RA: ; SVC SAT 66.3%; IVC SAT 61.1% RV: 54/4/17 PA: 53/29/39; PA SAT 60.6% PAOP: / AO: 129/70/95, AO SAT 95.7% CO: 3.42L/min CI: 1.94L/min/m^2 Complications: NONE Estimated blood loss: <50ml Closure method: Angioseal Assessment: The patient has severe council vessel coronary disease that limits flow to his right coronary artery. There is an 80% proximal occlusion and total obsturction to the distal segment of the RCA. The distal portion of the left anterior descending artery is completely occluded. The patient has severe global hypokinesis and severe 3+ mitral regurgitation. He has significantly decreased ejection fraction at 10%. Plan: The patient has severe flow-limiting disease. I think the patient would best benefit from a rest-rest redistribution thallium study to determine if his left ventricle is viable or if revascularization would be of benefit. The patient's case will be presented at next Monday's case study conference. He is not a very good candidate for high risk PCI because he has a known abdominal aortic aneurysm, which precludes the use of intracardiac balloon (contraindication). He may not be a very good candidate for an Impella because of known aortic insufficiency. He is frail and his risk of an open heart surgery is quite high. Intervention: NONE Patient Problems: Problems Problem Status Onset Chronic Disease Mgmt/Transitional Care Acute Atrial fibrillation Acute Clostridium difficile infection Acute Hypokalemia Acute
[2018-05-17] MEDS ORDERED: ONDANSETRON 4 MG/2 ML VIAL IVP PRN (13:39)
[2018-05-17] MEDS ORDERED: ATROPINE SULFATE 1 MG/10 ML SYR IVP PRN (13:39)
--- NOTE | 2018-05-17 17:25 | SOAPPROG ---
[place] Progress Note Assessment/Plan: Assessment: 77 y/o man with history of rectal cancer s/p hemicolectomy in 2013 but no reported chemo used. He had a lexiscan cardiolite at [facility] showed LVEF 62% with no ischemia. He denies previous cardiac problems. He has not seen any doctors in over two years. He has not felt well since 03/18. Last summer he could grocery shop for himself and walk 1-2 blocks with [employer]. He now is too weak to walk, is short of breath at rest and has lost weight. Denies CP, palpitations or syncope. Admitted yesterday after brought in by his neighbor who is his POA. Echo this hospitalization with LVEF 13%, severe RV dysfunction, severe AI/MR and TR with no . PAS 52mmHg. Ascending thoracic aorta 4.0cm. Also found to have AAA 6.0cm. Cath today shows critical 99% left man CAD. Ideally he would get a CABG and BIOAVR tomorrow but his biventricular function is too poor I believe to survive bypass. Options: discharge home to home hospice vs home on low dose Toprol XL and Lisinopril with viability thallium study next week and if some to most of heart viable consider high risk LM cardiac stenting with percutaneous VAD flora- procedure. Discussed these options with patient and he wants to think about them overnight. PLAN: 1)Toprol XL 25mg PO qam. 2)Lisnopril 5mg PO qam. 3)ASA 325mg PO qam. 4)dose of Kaexylate 30gms PO x 1 tonight for hyperkalemia 5)case care conference tomorrow with Mr. Day and his neighbor who is his POA 6)probably home Monday. 05/17/18 17:19 Subjective: s/p cardiac cath. Denies CP, rest dyspnea, abdominal pain or groin pain. Objective: Vital Signs Temp Pulse Resp BP Pulse Ox 36.6 C 96 16 117/82 H 96 05/17/18 07:56 05/17/18 16:33 05/17/18 16:33 05/17/18 16:33 05/17/18 16:33 Laboratory Results 05/17/18 04:45 05/17/18 15:20 05/16/18 05/17/18 05/18/18 05:59 05:59 05:59 Intake Total 674.8 1650 Output Total 1100 850 Balance -425.2 800 PT 15.5 SEC (12.0-15.0) H 05/17/18 04:45 INR 1.21 (0.83-1.16) H 05/17/18 04:45 Physical Exam - Physical Exam General Appearance: alert EENT: normal ENT inspection Neck: non-tender Respiratory: lungs clear Cardiac/Chest: regular rate, rhythm, gallop, systolic murmur, No JVD Peripheral Pulses: 2+: carotid (R), carotid (L), femoral (R), femoral (L), dorsalis-pedis (R), dorsalis-pedis (L) Abdomen: non-tender, No guarding, No rebound, No ascites Skin: warm/dry Extremities: No pedal edema Neuro/Psych: alert ICD10 Worksheet Patient Problems: Problems Problem Status Onset Chronic Disease Mgmt/Transitional Care Acute Atrial fibrillation Acute Clostridium difficile infection Acute Hypokalemia Acute
[2018-05-17] MEDS ORDERED: SODIUM POLY SULF 15 GM/60 ML BOTTLE PO ONE ×2 (17:29→18:00)
--- NOTE | 2018-05-17 20:09 | SOAPPROG ---
[place] Progress Note Assessment/Plan: Assessment: PATIENT CONTINUES TO IMPROVE FROM HIS CARDIAC STANDPOINT/CATHETERIZATION IS PENDING HE STILL MAY NEED ENDOVASCULAR REPAIR OF HIS 6.5 CM AAA DEPENDING ON HIS CARDIAC STATUS HEENT NONICTERIC CHEST CLEAR COR REGULAR RHYTHM ABDOMEN SOFT WITH PULSATILE ANEURYSM EXTREMITIES FULL PULSES Plan: DISCUSSED POTENTIAL ENDOVASCULAR ANEURYSM REPAIR WITH DR. HARSHA RETANA WITH HIS PLANT AND INSTRUMENT ENGINEER'S/RISKS AND OPTIONS FULLY DISCUSSED WITH THE PATIENT 05/17/18 20:08 Objective: Vital Signs Temp Pulse Resp BP Pulse Ox 36.6 C 103 H 20 126/86 H 92 05/17/18 07:56 05/17/18 17:44 05/17/18 17:44 05/17/18 17:44 05/17/18 17:44 Laboratory Results 05/17/18 04:45 05/17/18 15:20 05/16/18 05/17/18 05/18/18 05:59 05:59 05:59 Intake Total 674.8 1650 Output Total 1100 850 Balance -425.2 800 PT 15.5 SEC (12.0-15.0) H 05/17/18 04:45 INR 1.21 (0.83-1.16) H 05/17/18 04:45 ICD10 Worksheet Patient Problems: Problems Problem Status Onset Chronic Disease Mgmt/Transitional Care Acute Atrial fibrillation Acute Clostridium difficile infection Acute Hypokalemia Acute
--- NOTE | 2018-05-17 20:14 | SOAPPROG ---
[place] Progress Note Assessment/Plan: Assessment: PATIENT CONTINUES TO IMPROVE FROM HIS CARDIAC STANDPOINT/CATHETERIZATION IS PENDING HE STILL MAY NEED ENDOVASCULAR REPAIR OF HIS 6.5 CM AAA DEPENDING ON HIS CARDIAC STATUS HEENT NONICTERIC CHEST CLEAR COR REGULAR RHYTHM ABDOMEN SOFT WITH PULSATILE ANEURYSM EXTREMITIES FULL PULSES Plan: DISCUSSED POTENTIAL ENDOVASCULAR ANEURYSM REPAIR WITH DR. HARSHA RETANA WITH HIS SOLE LAYER'S/RISKS AND OPTIONS FULLY DISCUSSED WITH THE PATIENT 05/17/18 20:08 05/17/18 20:12 77-YEAR-OLD MALE IMPROVING WITH CARDIOLOGY THERAPY. HE IS HAVING NO ABDOMINAL PAIN FROM HIS ANEURYSM AND NO EVIDENCE OF EMBOLI AND HIS FEET CHEST CLEAR/COR REGULAR RHYTHM/ABDOMEN SOFT WITH PALPABLE ANEURYSM/EXTREMITIES FULL RANGE OF MOTION FULL PULSES PATIENT WILL NEED ENDOVASCULAR REPAIR OF THIS ANEURYSM IF HE CAN BE TUNED UP INTO A ADEQUATE SURGICAL RISK CANDIDATE. RISKS AND OPTIONS FULLY DISCUSSED WILL FOLLOW ALONG AND DISCUSS WITH CARDIOLOGY. HE WILL NEED A CT ANGIOGRAM FOR BETTER EVALUATION OF HIS ANEURYSM Objective: Vital Signs Temp Pulse Resp BP Pulse Ox 36.6 C 103 H 20 126/86 H 92 05/17/18 07:56 05/17/18 17:44 05/17/18 17:44 05/17/18 17:44 05/17/18 17:44 Laboratory Results 05/17/18 04:45 05/17/18 15:20 05/16/18 05/17/18 05/18/18 05:59 05:59 05:59 Intake Total 674.8 1650 Output Total 1100 850 Balance -425.2 800 PT 15.5 SEC (12.0-15.0) H 05/17/18 04:45 INR 1.21 (0.83-1.16) H 05/17/18 04:45 ICD10 Worksheet Patient Problems: Problems Problem Status Onset [facility] Disease [facility]/Transitional Care Acute Atrial fibrillation Acute Clostridium difficile infection Acute Hypokalemia Acute
--- NOTE | 2018-05-17 23:43 | CPEKG ---
Test Reason : OPEN Blood Pressure : / mmHG Vent. Rate : 078 BPM Atrial Rate : 079 BPM P-R Int : 168 ms QRS Dur : 122 ms QT Int : 384 ms P-R-T Axes : 035 -57 140 degrees QTc Int : 438 ms Sinus rhythm Atrial premature complexes left anterior fascular block lateral st-t changes consisitent with ischemia Confirmed by Emmanuel Kumari ([id number]) on 05/17/2018 11:43:24 PM Referred By: Confirmed By:Emmanuel Kumari
[2018-05-18] MEDS: ENOXAPARIN 40 MG/0.4 ML SYR SC SCH (09:27)
[2018-05-18] MEDS: LISINOPRIL 5 MG TAB PO SCH (09:28)
[2018-05-18] MEDS: ASPIRIN EC 325 MG TAB PO SCH (09:28)
[2018-05-18] MEDS: MAGNESIUM OXIDE 400 MG TAB PO SCH (09:28)
[2018-05-18] MEDS: METOPROLOL SUCCINATE XR 25 MG TAB PO SCH (09:29)
--- NOTE | 2018-05-18 10:52 | SOAPPROG ---
[place] Progress Note Assessment/Plan: Assessment: 77 y/o man with history of rectal cancer s/p hemicolectomy in 2013 but no reported chemo used. He had a lexiscan cardiolite at [facility] showed LVEF 62% with no ischemia. He denies previous cardiac problems. He has not seen any doctors in over two years. He has not felt well since 03/18. Last summer he could grocery shop for himself and walk 1-2 blocks with [employer]. He now is too weak to walk, is short of breath at rest and has lost weight. Denies CP, palpitations or syncope. Admitted yesterday after brought in by his neighbor who is his POA. Echo this hospitalization with LVEF 13%, severe RV dysfunction, severe AI/MR and TR with no . PAS 52mmHg. Ascending thoracic aorta 4.0cm. Also found to have AAA 6.0cm. Cath yesterday shows critical 99% left man CAD. Ideally he would get a CABG and BIOAVR but his biventricular function is too poor I believe to survive bypass. Options: discharge home to home hospice vs home on low dose Toprol XL and Lisinopril with viability thallium study next week and if some to most of heart viable consider high risk LM cardiac stenting with percutaneous VAD flora- procedure. Discussed these options with patient and he wants to think about them overnight. Discussion today with patient and KAREN Zavaleta and Teodoro Shay would like to explore placement at SNF/inpt hospice bed and not interested in more procedures including LM stenting. I support that decision. PLAN: 1)low dose Lisinopril and Toprol XL as long as SBP > 95 2)ASA 3)Palliative care and case management consults today to transfer to a SNF facility with hospice bed. 4)Pt DNR. 05/18/18 10:48 Subjective: patient is more tired and weak and short of breath at rest. Denies CP, abdominal pain or nausea. Objective: Vital Signs Temp Pulse Resp BP Pulse Ox 36.6 C 80 18 97/69 L 99 05/18/18 07:19 05/18/18 09:29 05/18/18 07:19 05/18/18 09:28 05/18/18 07:19 Laboratory Results 05/17/18 04:45 05/18/18 05:50 05/17/18 05/18/18 05/19/18 05:59 05:59 05:59 Intake Total 1650 Output Total 850 650 Balance 800 -650 PT 15.5 SEC (12.0-15.0) H 05/17/18 04:45 INR 1.21 (0.83-1.16) H 05/17/18 04:45 Physical Exam - Physical Exam General Appearance: alert, thin EENT: PERRL/EOMI Neck: non-tender Respiratory: rales (bases bilaterally.) Cardiac/Chest: regular rate, rhythm, gallop, JVD (vjp to 8cm.), systolic murmur Peripheral Pulses: 2+: carotid (R), carotid (L), femoral (R), femoral (L), dorsalis-pedis (R), dorsalis-pedis (L) Abdomen: non-tender, No guarding, No rebound, No ascites Skin: warm/dry Extremities: No pedal edema Neuro/Psych: oriented x 3 ICD10 Worksheet Patient Problems: Problems Problem Status Onset Chronic Disease Mgmt/Transitional Care Acute Atrial fibrillation Acute Clostridium difficile infection Acute Hypokalemia Acute
--- NOTE | 2018-05-18 12:54 | HOSPPROG ---
Hospitalist Progress Note Assessment/Plan: 77 yo male with advanced heart disease. The pt had a cath yesterday which shows multivessel disease, global hypokinesis, MR 3+, severe flow limiting disease, EF of 10%. He is felt not to be a good candidate for Bypass. Today, Dr. Sheth discussed transitioning to palliative care and possible hospice. He is leaning towards hospice but has not yet made this decision. The plan is for palliative care to see him today and consider d/c tomorrow to SNF with medical mgmt. The pt will f/u with Dr. Sheth this week to discuss further cardiac options if the pt chooses not pursue hospice. He was previously on Dobutamine and this was stopped a few days ago. Cr has been increasing likely due to poor cardiac output. He is starting to feel more fatigued. He does not have any e/o of volume overload. #Acute systolic heart failure-No history of CHF, LVEF of 13% on review of echo. -cont low dose BB and FELIX-I if his BP is able to tolerate -TTE c/w LVEF 13%, Severe RV Dysfunction Valvular Disease -Severe AI/MR/TR Abdominal aortic aneurysm, 6cm x 4.6 cm -not felt to be a good surgical candidate given his advance heart disease Acute Kidney Injury Hyperkalemia, improving. Would avoid K sparring diuretic Liver lesion-discussed with medical power of [place] attorney and stressed the importance of short-term followup for reassessment. Atrial fibrillation-history of. Patient appears to be in sinus rhythm currently. Subclinical hypothyroidism-patient's TSH is mildly elevated at 5 with a normal free T4. I do not think this needs medical therapy at the current time but rather following going forward. Prophylaxis- lovenox Cor-DNR Dispo- inpatient for CHF Subjective: feels tired. no cp or sob Objective: Vital Signs Temp Pulse Resp BP Pulse Ox 36.6 C 80 18 97/69 L 99 05/18/18 07:19 05/18/18 09:29 05/18/18 07:19 05/18/18 09:28 05/18/18 07:19 Laboratory Results 05/17/18 04:45 05/18/18 05:50 05/17/18 05/18/18 05/19/18 05:59 05:59 05:59 Intake Total 1650 Output Total 850 650 Balance 800 -650 PT 15.5 SEC (12.0-15.0) H 05/17/18 04:45 INR 1.21 (0.83-1.16) H 05/17/18 04:45 - Physical Exam Constitutional: no apparent distress Eyes: PERRL, EOMI Ears, Nose, Mouth, Throat: moist mucous membranes Cardiovascular: No edema Respiratory: No no respiratory distress Gastrointestinal: No distension Skin: warm Neurologic: AAOx3 Psychiatric: interacting appropriately, not anxious, not encephalopathic Lymph, Heme, Immunologic: No petechiae ICD10 Worksheet Patient Problems: Problems Problem Status Onset Chronic Disease Mgmt/Transitional Care Acute Atrial fibrillation Acute Clostridium difficile infection Acute Hypokalemia Acute
--- NOTE | 2018-05-18 13:56 | ASMTCMCOM ---
CM Note CM Note Notes: Pts case discussed in tx rounds. Pt is currently not a candidate for surgical intervention. CM spoke to Paola Blevins w/ transitional care about this case. CM met w/ pt for dispo planning. Pt is interested in a palliative. Pt is ok w/ having palliative at [facility]. Anticipate d/c to [facility] tomorrow. Referral sent to [facility] palliative. Updates sent to [facility]. CM to follow. Plan: [facility] SNF w/ Patricia wolfe follow up Date Signed: 05/18/2018 01:56 PM Electronically Signed By:TAMMY Arriaza
--- NOTE | 2018-05-18 14:24 | ASMTCMCOM ---
CM Note CM Note Notes: CM met pt w/ Elizabeth from palliative services. Pt is interested in hospice. However, pt is unable to self pay for room and board at [facility]. Pt reports that he does not have an option to go home with hospice as he does not have the means to pay for private duty caregivers. Pt has agreed to go to [facility] with palliative services. Elizabeth will see if [facility] can come out tomorrow to evaluate pt. Pt would like his friend Pietro ([facility] to be present during the [facility] visit. Elizabeth will speak to Pietro. Pt reports that he would like to d/c on Monday. CM communicated this w/ Dr. Webber. CM to follow. Plan: [facility] w/ Patricia palliative Date Signed: 05/18/2018 02:23 PM Electronically Signed By:TAMMY Arriaza
[2018-05-19 07:43] VITALS: BP 105/78
[2018-05-19] MEDS: ASPIRIN EC 325 MG TAB PO SCH (08:42)
[2018-05-19] MEDS: LISINOPRIL 5 MG TAB PO SCH (08:42)
[2018-05-19] MEDS: MAGNESIUM OXIDE 400 MG TAB PO SCH (08:42)
[2018-05-19] MEDS: METOPROLOL SUCCINATE XR 25 MG TAB PO SCH (08:42)
[2018-05-19] MEDS: ENOXAPARIN 40 MG/0.4 ML SYR SC SCH (08:42)
--- NOTE | 2018-05-19 11:40 | SOAPPROG ---
[place] Progress Note Assessment/Plan: Assessment: 77-year-old male with a cardiovascular history significant for a newly discovered severe cardiomyopathy with an ejection fraction below 20%. This is associated with complex valvular heart disease including severe aortic insufficiency, moderate to severe mitral insufficiency and moderate tricuspid regurgitation. Additionally, recent angiography demonstrated subtotal occlusion of the left main coronary artery and tandem high-grade lesions within the right coronary artery. Furthermore, he has evidence of peripheral vascular disease in the setting of a large is 6-1/2 cm abdominal aortic aneurysm. He has been followed over the last week by Dr. Blaise Dukes and underwent angiography with Dr. Mu Garcia. The over the last week conversations have been had with the patient regarding limited options available to him. As result , he has elected to be do not resuscitate and to be enrolled in outpatient hospice care. There are plans for him to be discharged within the next 24-48 hours. His biggest concern today is regarding his dietary restrictions. Plan: At this point, we will continue his current medications. I did change his diet to a regular diet per his request. He will be discharged to hospice within the next 1 or 2 days. We will sign off for now. Please re-consult if needed. 05/19/18 11:37 Subjective: The patient was seen and examined. His chart was reviewed. I reviewed his previous echocardiogram and cardiac catheterization report. I also briefly discussed the case with Dr. Feliciano Gibbs. Today states he feels well. He is not experiencing any chest pain or chest pressure. He is very angry today regarding the fact that his diet has been restricted to a cardiac diet. There are plans for him to be referred to an outpatient hospice facility. Objective: Vital Signs Temp Pulse Resp BP Pulse Ox 36.8 C 102 H 14 105/78 92 05/19/18 07:41 05/19/18 07:41 05/19/18 07:41 05/19/18 07:41 05/19/18 07:41 Laboratory Results 05/17/18 04:45 05/19/18 05:50 05/18/18 05/19/18 05/20/18 05:59 05:59 05:59 Intake Total 450 200 Output Total 650 300 Balance -650 450 -100 PT 15.5 SEC (12.0-15.0) H 05/17/18 04:45 INR 1.21 (0.83-1.16) H 05/17/18 04:45 Physical Exam - Physical Exam General Appearance: WD/WN, alert, no apparent distress EENT: PERRL/EOMI, normal ENT inspection, pharynx normal, TMs normal Neck: non-tender, full range of motion, supple, normal inspection Respiratory: chest non-tender, lungs clear, normal breath sounds Cardiac/Chest: normal peripheral pulses, regular rate, rhythm, systolic murmur, other (Positive 3rd heart sound) Peripheral Pulses: 2+: carotid (R), carotid (L), femoral (R), femoral (L), dorsalis-pedis (R), dorsalis-pedis (L) Abdomen: normal bowel sounds, non-tender, soft Male Genitalia: deferred Rectal: deferred Back: Normal inspection Skin: normal color, warm/dry Lymphatic: no adenopathy Extremities: normal range of motion, non-tender, normal inspection, normal capillary refill Neuro/Psych: no motor/sensory deficits, alert, normal mood/affect, oriented x 3 ICD10 Worksheet Patient Problems: Problems Problem Status Onset Chronic Disease [facility]/Transitional Care Acute Atrial fibrillation Acute Clostridium difficile infection Acute Hypokalemia Acute
--- NOTE | 2018-05-19 14:24 | PDIAF ---
- Diagnosis Diagnosis: heart failure, AAA Code Status: Do Not Resuscitate - Medication Management Discharge Medications: electronically signed and located in the Home Medication List. PICC Care - Routine: N/A - Orders Services needed: Registered Nurse, Physical Therapy Diet Recommendation: no restrictions on diet Additional Instructions: PT is DNR, comfort measures only. Should go to inpatient hospice if condition deteriorates, do not return to hospital - Follow Up Care Current Providers and Referrals: Patient,NotPresent [Unknown] - As per Instructions
--- NOTE | 2018-05-19 14:36 | ASMTLACE ---
LACE Length of stay for Answers: 4-6 days current admission Acuity / Level of Answers: Yes Care: Did the patient have an inpatient admission? Comorbidities - select Answers: Congestive heart failure all that apply Mild liver or renal disease Score: 11 Date Signed: 05/19/2018 02:35 PM Electronically Signed By:Alessandra Day RN
--- NOTE | 2018-05-19 14:42 | ASDISCHSUM ---
Discharge Information Plan Status:SNF Medically Cleared to Leave:05/18/2018 Discharge Date:05/18/2018 CM D/C Disposition:[facility] ADT D/C Disposition:[facility] Projected Discharge Date:05/17/2018 11:00 AM Transportation at D/C:Wheelchair Van Discharge Delay Reason: Follow-Up Date:05/17/2018 11:00 AM Discharge Slot: Final Diagnosis: Placement Information Referral Type:*Intermediate/SNF Referral ID:[id number] Provider Name:[facility] Address 1:[address] Address 2: City:[place] Selection Factors: State:[place] Referral Type:Palliative Care Referral ID:[id number] Provider Name:[facility] Address 1:[address] Phone Number: Address 2: Fax Number: [facility]:[place] Selection Factors: State:[place] Patient Contact Information Contact Name:CRISTHIAN Relationship:Friend Address: Work Phone: City: [facility] Phone: [facility] Code: Email: Financial Information Financial Class:Medicare Primary Plan Desc:MEDICARE INPATIENT Primary Plan Number:[id number] Secondary Plan Desc: Secondary Plan Number: Assessment Information LACE LACE Length of stay for Answers: 4-6 days current admission Acuity / Level of Answers: Yes Care: Did the patient have an inpatient admission? Comorbidities - select Answers: Congestive heart failure all that apply Mild liver or renal disease Score: 11 Date Signed: 05/19/2018 02:35 PM Electronically Signed By:Alessandra Day RN [facility] CM Progress Note CM Note CM Note Notes: Chart reivewed. 77 year old male admitted via ED with increasing edema of lower extremities and SOB. EF 13 percent. Has not seen MD in 2 years. Undergoing heart failure treatment with PICC. Lasix and dobutatmine. CM to follow for needs. Plan: TBD Date Signed: 05/13/2018 01:03 PM Electronically Signed By:Rosa Luis RN [facility] CM Progress Note CM Note CM Note Notes: 05/14/2018 Case Management Note Met w/pt to discuss d/c needs. PT recommending SNF. Pt agreeable. Faxed referral to [facility] Case Management d/c poc: [facility] pending acceptance Case Management to follow. Date Signed: 05/14/2018 01:00 PM Electronically Signed By:Alessandra Day RN [facility] CM Progress Note CM Note CM Note Notes: Pts case discussed in tx rounds. Pt is getting a cath today. Updates sent to [facility]. Anticipate d/c for Monday or of next week. CM to follow. Plan: [facility] Date Signed: 05/17/2018 11:57 AM Electronically Signed By:TAMMY Arriaza [facility] CM Progress Note CM Note CM Note Notes: Pts case discussed in tx rounds. Pt is currently not a candidate for surgical intervention. CM spoke to Paola Blevins w/ transitional care about this case. CM met w/ pt for dispo planning. Pt is interested in a palliative. Pt is ok w/ having palliative at [facility]. Anticipate d/c to [facility] tomorrow. Referral sent to [facility]. Updates sent to [facility]. CM to follow. [facility] Date Signed: 05/18/2018 01:56 PM Electronically Signed By:TAMMY Arriaza [facility] Progress Note CM Note CM Note Notes: CM met pt w/ Elizabeth from palliative services. Pt is interested in hospice. However, pt is unable to self pay for room and board at [facility]. Pt reports that he does not have an option to go home with hospice as he does not have the means to pay for private duty caregivers. Pt has agreed to go to [facility] with palliative services. Elizabeth will see if [facility] can come out tomorrow to evaluate pt. Pt would like his friend Pietro ([facility]) to be present during the [facility] visit. Elizabeth will speak to Pietro. Pt reports that he would like to d/c on Monday. CM communicated this w/ Dr. Webber. CM to follow. Plan: [facility] w/ [facility] palliative Date Signed: 05/18/2018 02:23 PM Electronically Signed By:TAMMY Arriaza Case Management Discharge Plan Note Case Management Discharge Discharge Order Complete? Answers: Yes Patient to Obtain Answers: Other Notes: [facility] Transportation Arranged Answers: Other Notes: w/c transport arranged by [facility] Transport will Pick (Date 05/19/2018 03:00 PM & Time) Faxed Final Orders Answers: Yes Notes: to [facility] Agency/Facility Transfer Answers: Yes Notes: to [facility] Report Printed & Faxed to Receiving Agency Discharge Comments Notes: 05/19/2018 Case Management Note Pt to discharge to [facility] with [facility]. Pt to shift to [facility] if another admission becomes necessary. Faxed final orders to both [facility] and [facility]. [facility] arranged transport. RN called report. Date Signed: 05/19/2018 02:40 PM Electronically Signed By:Alessandra Day RN Intervention Information Intervention Type:*Incorrect Registration Date of Service:05/13/2018 10:14 AM Patient Type:Inpatient Staff Member:ANNABELLE Lindsey Kerry Hours: Discipline: Severity: Comment: Intervention Type:*IM-Signed Date of Service:05/19/2018 02:38 PM Patient Type:Inpatient Staff Member:ANNABELLE Day Hillary Hours: Discipline: Severity: Comment:
--- NOTE | 2018-05-19 19:16 | GDS ---
DISCHARGE DIAGNOSES: 1. Acute systolic heart failure. 2. 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 3. Abdominal aortic aneurysm measuring 4.6 x 6 cm. 4. Acute kidney injury. 5. Hyperkalemia. 6. Atrial fibrillation. CONSULTANTS: Noelle Sheth MD, Cardiology. HISTORY: For details, please see history and physical dated May 12, 2018. In brief, the patient is a 77-year-old male with a history of diastolic heart failure and rectal cancer, who presented to the hospital with shortness of breath and lower extremity weakness. He was found to be in acute on c hronic heart failure and was admitted for further management. HOSPITAL COURSE: The patient was admitted to the progressive care unit. He underwent diuresis with IV Lasix. He was found to have systolic biventricular heart failure with an ejection fraction of 13% . He was maximized on medical therapy. He then underwent a left heart catheterization ,which reveal ed significantly decreased left ventricular systolic function with ejection fraction of 10%, severe g lobal hypokinesis. 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 It was not clear that revascularization would be of benefit. There was concern he was n ot a good candidate for high-risk PCI due to his known large abdominal aortic aneurysm which preclude s the use of the intracardiac balloon. In addition, it is noted his risk of open-heart surgery was a lso very high. Ultimately, he had limited options available to him. After further discussion with h is merchandise pickup/receiving associate, he elected to change his code status to do not resuscitate, and ultimately wished to be enrolled in outpatient hospice care. He makes very clear to me on the day of discharge he no ciara elva wants to take any of his cardiac medicine and wishes to let nature take its course. Unfortunatel y, due to his inability to pay for a private caregiver or room at a custodial facility, he is n ot currently a candidate for hospice. He will be discharged to a custodial facility on palliat kayode care with comfort care medications only at his request. Should his condition decompensate, he sh ould be transitioned to inpatient hospice and [facility] can help arrange this transition. He does not wish to return to the hospital. DISPOSITION: Patient is discharged to custodial facility in stable condition. FOLLOWUP: The patient will follow up with [facility] and transition to hospice when the time is appropriate. DISCHARGE MEDICATIONS: Please see [facility] completed outpatient medication list. New medications on discharge include Tylenol 650 p.o. four times daily p.r.n. Ativan 0.5 to 1 mg p.o. q.4 hours p.r.n. , and Roxanol 5 to 10 mg p.o. q.1 hour p.r.n. air hunger or pain. All other cardiac medications are discontinued at his request. /[id number]/MODL
== END 2018-05-19 15:09 | DRG 287 ==
LOC: INTOOBSV 16:59 → F2W 18:09 → OBSVTOIN 05-13 14:19
PROVIDERS: ADMIT Internal Medicine; ATTEND Internal Medicine
PROC: 02HV33Z Insertion of Infusion Device into Superior Vena Cava, Percutaneous Approach (ICD-10-PCS; 2018-05-13)
PROC: B2111ZZ Fluoroscopy of Multiple Coronary Arteries using Low Osmolar Contrast (ICD-10-PCS; principal; 2018-05-17)
PROC: 4A023N8 Measurement of Cardiac Sampling and Pressure, Bilateral, Percutaneous Approach (ICD-10-PCS; principal; 2018-05-17)
PROC: B2151ZZ Fluoroscopy of Left Heart using Low Osmolar Contrast (ICD-10-PCS; principal; 2018-05-17)
DX: I50.23 Acute on chronic systolic (congestive) heart failure (principal); N17.9 Acute kidney failure, unspecified; E86.9 Volume depletion, unspecified; I08.0 Rheumatic disorders of both mitral and aortic valves; I71.4 Abdominal aortic aneurysm, without rupture; I48.91 Unspecified atrial fibrillation; E87.5 Hyperkalemia; E02 Subclinical iodine-deficiency hypothyroidism; Z66 Do not resuscitate; Z85.048 Personal history of other malignant neoplasm of rectum, rectosigmoid junction, and anus
CPT/HCPCS: 84484-ER; 97116-GP; 97162-GP; 97165-GO; 97530-GP; C1751; G0378; G0480; J1250; J1644; J1650; J1940; J2250; J3010; J3475; Q9967